=== PATIENT | male | born 1960 | race Caucasian/White ===

== ENCOUNTER 2020-06-05 07:42 | Outpatient (CLI) | payer BC, OTHER ==
[2020-06-05 17:06] LABS: SARS-CoV-2 MS2 Positive; SARS-CoV-2 N Gene Negative; SARS-CoV-2 S Gene Negative; SARS-CoV-2 by NAA Not Detected (NotDetected); SARS-CoV-2 orf1ab Negative
== END 2020-06-05 07:43 | disposition home or self-care (01) ==
LOC: LABBT 07:42
PROVIDERS: ATTEND Ophthalmology Retina Specialist
DX: H54.7 Unspecified visual loss (principal); Z20.828 Contact with and (suspected) exposure to other viral communicable diseases
CPT/HCPCS: 87635; U0003

== ENCOUNTER 2020-06-10 06:01 | Day surgery (SDC) | payer BC ==
[2020-06-09 11:55] VITALS: BMI 25.7
[2020-06-10] MEDS ORDERED: Phenylephrine 2.5% Ophth Soln 5 ML BOT ONE (06:16)
[2020-06-10] MEDS ORDERED: Cyclopentolate 1% Opth Drop 2 ML BOT ONE (06:16)
[2020-06-10] MEDS ORDERED: PROPOFOL 20 ML ONE (06:35)
[2020-06-10] MEDS ORDERED: Midazolam HCl 2 mg/2 ml Vial ONE (06:35)
[2020-06-10] MEDS ORDERED: Fentanyl 100 MCG/2 ML VIAL ONE (06:35)
[2020-06-10] MEDS ORDERED: EPINEPHrine 0.3 MG in Ophthalmic Irrigation Solution 500 ML IRR SCH (07:00)
--- NOTE | 2020-06-10 08:59 | OP ---
DATE OF PROCEDURE: 06/10/2020 PREOPERATIVE DIAGNOSIS: Vitreous opacities, right eye. POSTOPERATIVE DIAGNOSIS: Vitreous opacities, right eye. PROCEDURE PERFORMED: 25-gauge pars plana vitrectomy, right eye. ESTIMATED BLOOD LOSS: None. SPECIMENS REMOVED: None. COMPLICATIONS: None. ANESTHESIA: MAC with sub-Tenon's block. DESCRIPTION OF PROCEDURE: The patient was identified in the preoperative holding area. The correct eye being the right eye was marked for surgery. The patient was taken to the operating room, where MAC anesthesia was induced. The right eye was prepped and draped in usual sterile ophthalmic fashion for surgery. A wire-clip lid speculum was placed. An inferonasal conjunctival peritomy was fashioned with Chris scissors for administration of sub-Tenon's block. The block consisted of 1:1 ratio of 4% lidocaine and 0.75% Marcaine. A total of 5 mL was administered. A standard 25-gauge pars plana vitrectomy platform was fashioned with trocars placed approximately 4 mm from the limbus. The infusion was noted to be within the vitreous cavity prior to being turned on to infusion pressure of 30 mmHg. The light pipe and microvitrector were introduced in the eye under visualization the BIOM viewing system. A significant amount of vitreous opacities was identified. A careful core and peripheral shave vitrectomy were performed with the assistance of [place]. Following completion of vitrectomy, a complete 360-degree scleral depressed exam of the periphery was performed and no defects were identified. The cannulas were sequentially removed, and all sclerotomies were sutured with 8-0 Vicryl suture. Following suturing, all sclerotomies were noted to be watertight. Subconjunctival Ancef and Kenalog were injected. The wire-clip lid speculum was removed followed by application of TobraDex ophthalmic ointment and a light patch and shield. The patient tolerated the procedure well and was taken to outpatient recovery area in good condition. Job ID: [id number]
[2020-06-10] MEDS ORDERED: CEFAZOLIN 1 GM VIAL ONE (12:38)
[2020-06-10] MEDS ORDERED: Lidocaine 4% PF 5 ML AMP ONE (12:38)
[2020-06-10] MEDS ORDERED: Triamcinolone 40 MG/ML VIAL ONE (12:38)
[2020-06-10] MEDS ORDERED: Lidocaine 1% PF 5 ML VIAL ONE (12:38)
[2020-06-10] MEDS ORDERED: Bupivacaine PF 0.75% SDV 10 ML ONE (12:38)
[2020-06-10] MEDS ORDERED: Maxitrol 0.1% Opth Oint 3.5 GM TUBE ONE (12:38)
== END 2020-06-10 08:45 | disposition home or self-care (01) ==
LOC: SDC 06:01
PROVIDERS: ATTEND Ophthalmology Retina Specialist
PROC: 08T43ZZ Resection of Right Vitreous, Percutaneous Approach (ICD-10-PCS; principal; 2020-06-10)
DX: H43.391 Other vitreous opacities, right eye (principal); I10 Essential (primary) hypertension; Z79.82 Long term (current) use of aspirin; Z79.899 Other long term (current) drug therapy
CPT/HCPCS: J0171; J0690; J2001; J2250; J2704; J3010; J3301; J3490